=== PATIENT | female | born 1940 | race Caucasian/White ===

== ENCOUNTER → 2017-04-11 | Outpatient (CLI) | payer MEDICARE ==
--- NOTE | 2017-04-12 10:44 | ECHOF ---
Referral Reason:Aortic stenosis, Dyspnea, Edema MEASUREMENTS -------- HEIGHT: 167.6 cm WEIGHT: 86.2 kg BP: 119/60 RVIDd: 2.2 cm (< 3.3) IVSd: 1.1 cm (0.6 - 1.1) LVIDd: 4.1 cm (3.9 - 5.3) LVPWd: 1.1 cm (0.6 - 1.1) IVSs: 1.7 cm LVIDs: 2.7 cm LVPWs: 1.5 cm LA Diam: 3.9 cm (2.7 - 3.8) LAESV Index (A-L): 14.65 ml/m Ao Diam: 3.2 cm (2.0 - 3.7) AV Cusp: 1.6 cm (1.5 - 2.6) MV EXCURSION: 20.651 mm (> 18.000) MV EF SLOPE: 137 mm/s (70 - 150) EPSS: 0.2 cm MV E John: 0.75 m/s MV DecT: 211 ms MV A John: 0.94 m/s MV E/A Ratio: 0.79 AV maxP.50 mmHg AV meanP.90 mmHg FINDINGS -------- This was a technically adequate study. The left ventricular size is normal. There is borderline concentric left ventricular hypertrophy. Overall left ventricular systolic function is normal with, an EF between 55 - 60 %. The right ventricle is normal in size. Normal LA size by volume 22+/-6 ml/m2. The right atrium is normal in size. There is mild aortic valve sclerosis. There is mild aortic stenosis present. Peak/mean gradient across the Aortic Valve is 20.50mmHg / 8.90mmHg. Mild mitral annular calcification present. The tricuspid valve appears structurally normal. The pulmonic valve is normal. The aortic root size is normal. Normal inferior vena cava with normal inspiratory collapse consistent with estimated right atrial pressure of 5 mmHg. The pericardium is normal. CONCLUSIONS -------- 1. This was a technically adequate study. 2. Peak/mean gradient across the Aortic Valve is 20.50mmHg / 8.90mmHg. 3. Mild mitral annular calcification present. 4. The tricuspid valve appears structurally normal. 5. The pulmonic valve is normal. 6. The aortic root size is normal. 7. Normal inferior vena cava with normal inspiratory collapse consistent with estimated right atrial pressure of 5 mmHg. 8. The pericardium is normal. 9. The left ventricular size is normal. 10. There is borderline concentric left ventricular hypertrophy. 11. Overall left ventricular systolic function is normal with, an EF between 55 - 60 %. 12. The right ventricle is normal in size. 13. Normal LA size by volume 22+/-6 ml/m2. 14. The right atrium is normal in size. 15. There is mild aortic valve sclerosis. 16. There is mild aortic stenosis present. BEVERAGE SERVER: Mandi Pretty RDCS
== END | disposition home or self-care (01) ==
LOC: EDBD 14:53 → RADECHMAIN 14:53
PROVIDERS: ATTEND Family Medicine
DX: I35.0 Nonrheumatic aortic (valve) stenosis (principal); I05.9 Rheumatic mitral valve disease, unspecified; I35.8 Other nonrheumatic aortic valve disorders; R60.9 Edema, unspecified
CPT/HCPCS: 93306

== ENCOUNTER → 2018-07-06 | Outpatient (CLI) | payer MEDICARE ==
--- NOTE | 2018-07-06 14:09 | US ---
EXAMINATION TYPE: US kidneys/renal and bladder DATE OF EXAM: 07/06/2018 COMPARISON: None CLINICAL HISTORY: R31.2 MICROHEMATURIA. Microscopic hematuria. No pain. Hx of recent UTI EXAM MEASUREMENTS: Right Kidney: 9.8 x 4.2 x 4.0 cm Left Kidney: 9.4 x 4.3 x 4.3 cm Right Kidney: No hydronephrosis or masses seen Left Kidney: No hydronephrosis or masses seen Bladder: wnl, distended Bilateral Jets seen There is no evidence for hydronephrosis at this point in time. No nephrolithiasis is seen. No shanell s are identified. The urinary bladder is anechoic. Bilateral ureteral jets are seen. IMPRESSION: No hydronephrosis or nephrolithiasis. No sonographic sequela of medical renal disease. No focal renal masses seen.
== END | disposition home or self-care (01) ==
LOC: RADUSWWP 13:21 → EDBD 13:40
PROVIDERS: ATTEND Family Medicine
DX: R31.29 Other microscopic hematuria (principal)
CPT/HCPCS: 76770

== ENCOUNTER 2022-03-15 09:31 | Inpatient (IN) | payer MEDICARE ==
[2022-03-15 10:35] LABS: Basophils % (A) 0 %; Eosinophils # (A) 0.1 k/uL (0-0.7); Eosinophils % (A) 2 %; HCT 27.3 % (34.0-46.0); HGB 9.2 gm/dL (11.4-16.0); Hypochromasia Slight; Lymphocytes # (A) 1.7 k/uL (1.0-4.8); Lymphocytes % (A) 22 %; MCH 31.7 pg (25.0-35.0); MCHC 33.7 g/dL (31.0-37.0); MCV 94.2 fL (80.0-100.0); Mean Platelet Volume 9.7; Monocytes # (A) 0.5 k/uL (0-1.0); Monocytes % (A) 7 %; Neutrophils # (A) 4.9 k/uL (1.3-7.7); Neutrophils % (A) 66 %; Platelet Count 356 k/uL (150-450); Poikilocytosis Slight; RDW 12.7 % (11.5-15.5); WBC 7.5 k/uL (3.8-10.6)
[2022-03-15 10:46] LABS: INR 1.2 (<1.2); Partial Thromboplastin Time 38.7 sec (22.0-30.0); Prothrombin Time 12.6 sec (9.0-12.0)
[2022-03-15 10:47] LABS: Albumin 3.7 g/dL (3.5-5.0); Calcium 9.2 mg/dL (8.4-10.2); Potassium 3.4 mmol/L (3.5-5.1); Total Bilirubin 0.6 mg/dL (0.2-1.3); Total Protein 6.5 g/dL (6.3-8.2)
[2022-03-15] MEDS ORDERED: PANTOPRAZOLE 40 MG/10 ML VIAL IVP STA (12:21)
[2022-03-15] MEDS ORDERED: NALOXONE 0.4 MG/ML 1 ML VIAL IV PRN (12:24)
--- NOTE | 2022-03-15 12:24 | ED ---
General Adult HPI - General Chief complaint: GI Bleed Stated complaint: blood in stool Time Seen by Provider: 03/15/22 11:57 Source: patient, RN notes reviewed Mode of arrival: ambulatory Limitations: no limitations - History of Present Illness Initial comments: Patient is a pleasant 82-year-old female presenting to the emergency department with concern for rectal bleeding. Patient has had some mild abdominal discomfort for a few weeks. Patient has had a little bit of dark stools. Patient has had occasional blood in stools the last week, more the last day or 2. Patient has had this one or 2 times per day consistent with her normal bowel movements. No rectal pain. Patient is having some lightheadedness. Patient feels fatigued. Patient has exertional dyspnea. Patient is on Xarelto secondary to history of atrial fibrillation. No history of similar symptoms previously. - Related Data Allergies Allergy/AdvReac Type Severity Reaction Status Date / Time Sulfa (Sulfonamide Allergy Anaphylaxis Verified 03/15/22 09:57 Antibiotics) Review of Systems ROS Statement: Those systems with pertinent positive or pertinent negative responses have been documented in the HPI. ROS Other: All systems not noted in ROS Statement are negative. Constitutional: Denies: fever Eyes: Denies: eye pain ENT: Denies: ear pain Respiratory: Reports: as per HPI. Denies: cough Cardiovascular: Denies: chest pain Endocrine: Reports: fatigue Gastrointestinal: Reports: as per HPI, melena, hematochezia. Denies: vomiting Genitourinary: Denies: dysuria Musculoskeletal: Denies: back pain Skin: Denies: rash Past Medical History Past Medical History: Atrial Fibrillation, Coronary Artery Disease (CAD), Hypertension History of Any Multi-Drug Resistant Organisms: None Reported Past Surgical History: Hysterectomy, Orthopedic Surgery Past Psychological History: No Psychological Hx Reported Smoking Status: Never smoker Past Alcohol Use History: None Reported Past Drug Use History: None Reported General Exam Limitations: no limitations General appearance: alert, in no apparent distress Head exam: Present: normocephalic Eye exam: Present: normal appearance Neck exam: Present: normal inspection Respiratory exam: Present: normal lung sounds bilaterally Cardiovascular Exam: Present: regular rate, normal rhythm. Absent: irregular rhythm GI/Abdominal exam: Present: soft, normal bowel sounds. Absent: distended, tenderness, guarding, rebound, rigid, pulsatile mass Rectal exam: Present: black stool Extremities exam: Present: normal inspection Neurological exam: Present: alert Psychiatric exam: Present: normal affect, normal mood Skin exam: Present: normal color Course Vital Signs 03/15/22 09:54 Temperature 98.7 F Pulse Rate 76 Respiratory 20 Rate Blood Pressure 114/57 O2 Sat by Pulse 100 Oximetry Medical Decision Making - Medical Decision Making Patient updated on results and plan. [facility] has been paged for admission. Case discussed with practitioner Ernie, who will admit - Lab Data Result diagrams: 03/15/22 10:09 03/15/22 10:09 Lab Results 03/15/22 03/15/22 03/15/22 Range/Units 10:09 10:09 10:09 WBC 7.5 (3.8-10.6) k/uL RBC 2.90 L (3.80-5.40) m/uL Hgb 9.2 L (11.4-16.0) gm/dL Hct 27.3 L (34.0-46.0) % MCV 94.2 (80.0-100.0) fL MCH 31.7 (25.0-35.0) pg MCHC 33.7 (31.0-37.0) g/dL RDW 12.7 (11.5-15.5) % Plt Count 356 (150-450) k/uL MPV 9.7 Neutrophils % 66 % Lymphocytes % 22 % Monocytes % 7 % Eosinophils % 2 % Basophils % 0 % Neutrophils # 4.9 (1.3-7.7) k/uL Lymphocytes # 1.7 (1.0-4.8) k/uL Monocytes # 0.5 (0-1.0) k/uL Eosinophils # 0.1 (0-0.7) k/uL Basophils # 0.0 (0-0.2) k/uL Hypochromasia Slight Poikilocytosis Slight PT 12.6 H (9.0-12.0) sec INR 1.2 H (<1.2) APTT 38.7 H (22.0-30.0) sec Sodium 139 (137-145) mmol/L Potassium 3.4 L (3.5-5.1) mmol/L Chloride 103 (98-107) mmol/L Carbon Dioxide 27 (22-30) mmol/L Anion Gap 9 mmol/L BUN 23 H (7-17) mg/dL Creatinine 1.16 H (0.52-1.04) mg/dL Est GFR (CKD-EPI)AfAm 50 (>60 ml/min/1.73 sqM) Est GFR (CKD-EPI)NonAf 44 (>60 ml/min/1.73 sqM) Glucose 108 H (74-99) mg/dL Calcium 9.2 (8.4-10.2) mg/dL Total Bilirubin 0.6 (0.2-1.3) mg/dL AST 18 (14-36) U/L ALT 11 (4-34) U/L Alkaline Phosphatase 43 (38-126) U/L Troponin I (0.000-0.034) ng/mL Total Protein 6.5 (6.3-8.2) g/dL Albumin 3.7 (3.5-5.0) g/dL 03/15/22 Range/Units 10:09 WBC (3.8-10.6) k/uL RBC (3.80-5.40) m/uL Hgb (11.4-16.0) gm/dL Hct (34.0-46.0) % MCV (80.0-100.0) fL MCH (25.0-35.0) pg MCHC (31.0-37.0) g/dL RDW (11.5-15.5) % Plt Count (150-450) k/uL MPV Neutrophils % % Lymphocytes % % Monocytes % % Eosinophils % % Basophils % % Neutrophils # (1.3-7.7) k/uL Lymphocytes # (1.0-4.8) k/uL Monocytes # (0-1.0) k/uL Eosinophils # (0-0.7) k/uL Basophils # (0-0.2) k/uL Hypochromasia Poikilocytosis PT (9.0-12.0) sec INR (<1.2) APTT (22.0-30.0) sec Sodium (137-145) mmol/L Potassium (3.5-5.1) mmol/L Chloride (98-107) mmol/L Carbon Dioxide (22-30) mmol/L Anion Gap mmol/L BUN (7-17) mg/dL Creatinine (0.52-1.04) mg/dL Est GFR (CKD-EPI)AfAm (>60 ml/min/1.73 sqM) Est GFR (CKD-EPI)NonAf (>60 ml/min/1.73 sqM) Glucose (74-99) mg/dL Calcium (8.4-10.2) mg/dL Total Bilirubin (0.2-1.3) mg/dL AST (14-36) U/L ALT (4-34) U/L Alkaline Phosphatase (38-126) U/L Troponin I <0.012 (0.000-0.034) ng/mL Total Protein (6.3-8.2) g/dL Albumin (3.5-5.0) g/dL Disposition Clinical Impression: Lower GI hemorrhage Disposition: ADMITTED IP TO THIS HOSP Is patient prescribed a controlled substance at d/c from ED?: No Time of Disposition: 12:24
[2022-03-15] MEDS: SODIUM CHLORIDE 0.9% 1,000 ML IV SCH (12:46)
[2022-03-15] MEDS ORDERED: POTASSIUM CHLORIDE ER 20 MEQ TAB.ER PO STA (14:09)
--- NOTE | 2022-03-15 14:09 | P.HPIM ---
History of Present Illness H&P Date: 03/15/22 Chief Complaint: GI bleed Patient is a pleasant 82-year-old female she presents to the emergency room with chief complaint of rectal bleeding. Patient reports that her last episode of bleeding was this morning. She's been having complaints of intermittent abdominal pain along with episodes of melanotic stool since January. Patient reports that she started to notice bright red blood in her stools since last week. She's also complaining of some associated lightheadedness, fatigue as well as worsening exertional dyspnea. Patient does take xarelto due to her atrial fibrillation history. Patient denies any previous history of GI bleeds. He denies any history of peptic ulcer disease. She reports her last colonoscopy was over 10 years ago. She denies any history of EGD. Review of Systems Full complete 12 point review of system was completed and pertinent positives and negatives noted in HPI Past Medical History Past Medical History: Atrial Fibrillation, Coronary Artery Disease (CAD), Hypertension History of Any Multi-Drug Resistant Organisms: None Reported Past Surgical History: Hysterectomy, Orthopedic Surgery Past Psychological History: No Psychological Hx Reported Smoking Status: Never smoker Past Alcohol Use History: None Reported Past Drug Use History: None Reported Medications and Allergies Home Medications Medication Instructions Recorded Confirmed Type Cyanocobalamin (Vitamin B-12) 1,000 mcg PO HS 03/15/22 03/15/22 History [Vitamin B-12] Folic Acid 0.8 mg PO HS 03/15/22 03/15/22 History Lisinopril-Hctz 20-25 mg 1 tab PO BID 03/15/22 03/15/22 History [Zestoretic 20-25] Omeprazole 20 mg PO DAILY 03/15/22 03/15/22 History Pravastatin Sodium [Pravachol] 80 mg PO DAILY 03/15/22 03/15/22 History Rivaroxaban [Xarelto] 20 mg PO HS 03/15/22 03/15/22 History Allergies Allergy/AdvReac Type Severity Reaction Status Date / Time Sulfa (Sulfonamide Allergy Mouth Sores Verified 03/15/22 12:44 Antibiotics) Physical Exam Osteopathic Statement: *. No significant issues noted on an osteopathic structural exam other than those noted in the History and Physical/Consult. Vitals: Vital Signs Temp Pulse Resp BP Pulse Ox 03/15/22 12:30 97.2 F L 77 18 137/58 94 L 03/15/22 09:54 98.7 F 76 20 114/57 100 Intake and Output 03/14/22 03/15/22 03/15/22 22:59 06:59 14:59 Other: Weight 81.647 kg Derm: warm, dry Head: atraumatic, normocephalic, symmetric Eyes: EOMI, no lid lag, anicteric sclera, pupils equal round reactive to light ENT: Nose and ears atraumatic, no thrush, no pharyngeal erythema Neck: No thyromegaly, no cervical lymphadenopathy, trachea midline, supple Mouth: no lip lesion, mucus membranes moist Cardiovascular: S1S2 reg, no murmur, positive posterior tibial pulse bilateral, no edema, capillary refill less than 2 seconds Lungs: clear to ascultation bilateral, no ronchi, no rales, no wheeze, no accessory muscle use Abdominal: soft, nontender to palpation, no guarding, no appreciable organomegaly, normal bowel sounds Ext: no gross muscle atrophy, muscle strength muscle strength 5 out of 5 in all 4 extremities, no contractures Neuro: CN II-XI grossly intact, light touch intact all 4 extremities, finger to nose within normal limits, Psych: Alert, oriented, appropriate affect Results CBC & Chem 7: 03/15/22 10:09 03/15/22 10:09 Labs: Abnormal Lab Results - Last 24 Hours (Table) 03/15/22 03/15/22 03/15/22 Range/Units 10:09 10:09 10:09 RBC 2.90 L (3.80-5.40) m/uL Hgb 9.2 L (11.4-16.0) gm/dL Hct 27.3 L (34.0-46.0) % PT 12.6 H (9.0-12.0) sec INR 1.2 H (<1.2) APTT 38.7 H (22.0-30.0) sec Potassium 3.4 L (3.5-5.1) mmol/L BUN 23 H (7-17) mg/dL Creatinine 1.16 H (0.52-1.04) mg/dL Glucose 108 H (74-99) mg/dL Stool Occult Blood (Negative) 03/15/22 Range/Units 12:30 RBC (3.80-5.40) m/uL Hgb (11.4-16.0) gm/dL Hct (34.0-46.0) % PT (9.0-12.0) sec INR (<1.2) APTT (22.0-30.0) sec Potassium (3.5-5.1) mmol/L BUN (7-17) mg/dL Creatinine (0.52-1.04) mg/dL Glucose (74-99) mg/dL Stool Occult Blood Positive H (Negative) Assessment and Plan (1) Lower GI hemorrhage Current Visit: Yes Status: Acute Code(s): K92.2 - GASTROINTESTINAL HEMORRHAGE, UNSPECIFIED SNOMED Code(s): 44696325 Plan: GI bleeding Symptomatic Anemia-acute blood loss Melanotic stool -Patient reports bright red blood per rectum multiple episodes in the last week. Patient also knows have a history of reporting darker colored stools in the last month. Patient is on anticoagulation Xarelto for atrial fibrillation stroke prevention. This medication will now be placed on hold. Patient has been started on IV Protonix 40 mg IVP daily. We'll avoid any anticoagulations at this time. We'll continue to trend H&H. Patient's current hemoglobin 9.2. Patient's baseline hemoglobin unclear as there is no lab reference. -GI team has been consulted -Maintain patient nothing by mouth after midnight -Clear liquid diet -IV fluids Atrial fibrillation CAD Hypertension -Currently heart rate is controlled. Holding anticoagulation -Patient's home on blood pressure medication hydrochlorothiazide lisinopril on hold. -Continue statin therapy. Hypokalemia -Replace potassium Acute kidney injury Likely prerenal secondary to acute blood loss anemia, we'll continue with IV fluids and monitor urine output Time with Patient: Greater than 30
[2022-03-15 18:38] LABS: HCT 24.7 % (34.0-46.0); Hypochromasia Moderate; MCH 31.3 pg (25.0-35.0); MCHC 32.2 g/dL (31.0-37.0); MCV 97.2 fL (80.0-100.0); Mean Platelet Volume 10.1; Platelet Count 267 k/uL (150-450); Poikilocytosis Slight; RBC 2.54 m/uL (3.80-5.40); RDW 12.2 % (11.5-15.5); WBC 6.4 k/uL (3.8-10.6)
[2022-03-15] MEDS: PANTOPRAZOLE 40 MG/10 ML VIAL IVP SCH (21:33)
[2022-03-15] MEDS: FOLIC ACID 1 MG TAB PO SCH (21:34)
[2022-03-15] MEDS ORDERED: ACETAMINOPHEN TAB 325 MG TAB PO PRN ×2 (23:14→23:59)
[2022-03-16] MEDS: PRAVASTATIN SODIUM 80 MG TAB PO SCH (08:06)
[2022-03-16] MEDS: PANTOPRAZOLE 40 MG/10 ML VIAL IVP SCH ×2 (08:06→22:35)
[2022-03-16] MEDS: SODIUM CHLORIDE 0.9% 1,000 ML IV SCH ×2 (08:07→22:36)
[2022-03-16] MEDS ORDERED: PANTOPRAZOLE 40 MG/10 ML VIAL IVP SCH (09:00)
[2022-03-16] MEDS ORDERED: PEG 3350-NA SULF,BICARB,CL/KCL 4,000 ML BOTTLE PO ONE (12:06)
[2022-03-16 12:27] LABS: Basophils % (A) 0 %; Eosinophils # (A) 0.2 k/uL (0-0.7); Eosinophils % (A) 2 %; HCT 23.6 % (34.0-46.0); HGB 7.6 gm/dL (11.4-16.0); Hypochromasia Moderate; Lymphocytes # (A) 1.8 k/uL (1.0-4.8); Lymphocytes % (A) 25 %; MCH 31.5 pg (25.0-35.0); MCHC 32.1 g/dL (31.0-37.0); Mean Platelet Volume 9.4; Monocytes # (A) 0.9 k/uL (0-1.0); Monocytes % (A) 13 %; Neutrophils # (A) 3.9 k/uL (1.3-7.7); Neutrophils % (A) 57 %; Platelet Count 254 k/uL (150-450); Poikilocytosis Slight; RBC 2.41 m/uL (3.80-5.40); RDW 12.2 % (11.5-15.5); WBC 6.9 k/uL (3.8-10.6)
--- NOTE | 2022-03-16 13:52 | P.GSCN ---
History of Present Illness Consult date: 03/16/22 History of present illness: CHIEF COMPLAINT: GI bleed HISTORY OF PRESENT ILLNESS: This is a 82-year-old female who presented to the hospital with complaints of bright red blood per rectum. Patient reports that she has been having bleeding from her rectum for about 4 weeks. She reports over the weekend that the bleeding increased in amount. She reports that she has about 2 bowel movements a day with blood. She reports yesterday she started to feel dizzy as well. She does complain of some mild abdominal discomfort below the umbilicus. She is on Xarelto at home for her atrial fibrillation. She reports her hemoglobin at her doctor's office was 9.2 about a week ago. She does have a family history of a mom with colon cancer. Patient reports that her last colonoscopy was about 10 years ago and revealed some diverticulosis. Patient also reports having a EGD around that time as well that was normal. PAST MEDICAL HISTORY: Atrial Fibrillation, Coronary Artery Disease (CAD), Hypertension PAST SURGICAL HISTORY: Hysterectomy, Orthopedic Surgery MEDICATIONS: See list. ALLERGIES: See list. SOCIAL HISTORY: No illicit drug use. REVIEW OF SYSTEMS: CONSTITUTIONAL: Denies fever or chills. HEENT: Denies blurred vision, vision changes, or eye pain. Denies hemoptysis CARDIOVASCULAR: Denies chest pain or pressure. RESPIRATORY: No shortness of breath. GASTROINTESTINAL: See HPI for pertinent findings HEMATOLOGIC: Denies bleeding disorders. GENITOURINARY: Denies any blood in urine or increased urinary frequency. SKIN: Denies pruitis. Denies rash. PHYSICAL EXAM: VITAL SIGNS: Reviewed GENERAL: Well-developed in no acute distress. HEENT: No sclera icterus. Extraocular movements grossly intact. Moist buccal mucosa. Head is atraumatic, normocephalic. No nasal drainage. ABDOMEN: Soft. Nondistended. Tenderness to palpation below the umbilicus. NEUROLOGIC: Alert and oriented. Cranial nerves II through XII grossly intact. LABORATORY DATA: WBC is 7.5 hemoglobin 9.2 on admission trending downward to 7.6 platelets 254 INR 1.2 sodium is 139 potassium 3.4 creatinine 1.16 Stool for occult blood positive IMAGING: ASSESSMENT: 1. Acute GI bleed 2. Acute blood loss anemia secondary to GI bleed 3. Family history of her mother with colon cancer 4. History of diverticulosis 5. History of atrial fibrillation on Xarelto at home 6. Hypokalemia. Patient received supplement PLAN: -Patient scheduled for EGD and colonoscopy tomorrow 03/17/[address] adams -Start GoLYTELY prep -Okay for clear liquid diet today -Nothing by mouth after midnight -Continue to monitor hemoglobin -Continue monitor for signs and symptoms bleeding -Patient scheduled to receive a unit of blood -Continue PPI -Continue to hold Xarelto thank you for this consultation Physician Barman note has been reviewed by physician. Signing provider agrees with the documented findings, assessment, and plan of care. Past Medical History Past Medical History: Atrial Fibrillation, Coronary Artery Disease (CAD), GI Bleed, Hypertension Additional Past Medical History / Comment(s): GI bleed currently History of Any Multi-Drug Resistant Organisms: None Reported Past Surgical History: Hysterectomy, Orthopedic Surgery Past Anesthesia/Blood Transfusion Reactions: No Reported Reaction Past Psychological History: No Psychological Hx Reported Smoking Status: Never smoker Past Alcohol Use History: None Reported Past Drug Use History: None Reported - Past Family History Mother Family Medical History: Cancer Additional Family Medical History / Comment(s): colon cancer Medications and Allergies Home Medications Medication Instructions Recorded Confirmed Type Cyanocobalamin (Vitamin B-12) 1,000 mcg PO HS 03/15/22 03/15/22 History [Vitamin B-12] Folic Acid 0.8 mg PO HS 03/15/22 03/15/22 History Lisinopril-Hctz 20-25 mg 1 tab PO BID 03/15/22 03/15/22 History [Zestoretic 20-25] Omeprazole 20 mg PO DAILY 03/15/22 03/15/22 History Pravastatin Sodium [Pravachol] 80 mg PO DAILY 03/15/22 03/15/22 History Rivaroxaban [Xarelto] 20 mg PO HS 03/15/22 03/15/22 History Allergies Allergy/AdvReac Type Severity Reaction Status Date / Time Sulfa (Sulfonamide Allergy Mouth Sores Verified 03/15/22 12:44 Antibiotics) Surgical - Exam Vital Signs Temp Pulse Resp BP Pulse Ox 98.7 F 76 20 114/57 100 03/15/22 09:54 03/15/22 09:54 03/15/22 09:54 03/15/22 09:54 03/15/22 09:54 Results - Labs 03/16/22 11:53 03/15/22 10:09 Abnormal Lab Results - Last 24 Hours (Table) 03/15/22 03/15/22 Range/Units 12:30 18:08 RBC 2.54 L (3.80-5.40) m/uL Hgb 8.0 L (11.4-16.0) gm/dL Hct 24.7 L (34.0-46.0) % Stool Occult Blood Positive H (Negative)
--- NOTE | 2022-03-16 13:59 | P.PN ---
Subjective Progress Note Date: 03/16/22 Principal diagnosis: GI bleed Patient is a pleasant 82-year-old female she presents to the emergency room with chief complaint of rectal bleeding. Patient reports that her last episode of bleeding was this morning. She's been having complaints of intermittent abdominal pain along with episodes of melanotic stool since January. Patient reports that she started to notice bright red blood in her stools since last week. She's also complaining of some associated lightheadedness, fatigue as well as worsening exertional dyspnea. Patient does take xarelto due to her atrial fibrillation history. Patient denies any previous history of GI bleeds. He denies any history of peptic ulcer disease. She reports her last colonoscopy was over 10 years ago. She denies any history of EGD. 03/16/2022: Patient denies any new complaints of chest pain or pressure. Denies any new complaints of lightheaded nausea vomiting fever or chills. Patient denies any new episodes of rectal bleeding. She denies any bowel movement in the hospital. Patient's hemoglobin has now decreased to 7.6 from admission 9.2. Objective - Vital Signs Vital signs: Vital Signs Temp 98.4 F 03/16/22 13:44 Pulse 65 03/16/22 13:44 Resp 16 03/16/22 13:44 BP 141/92 03/16/22 13:44 Pulse Ox 96 03/16/22 13:44 Intake & Output 03/15/22 03/16/22 03/16/22 18:59 06:59 18:59 Weight 81.647 kg 81.647 kg Other: Voiding Method Bedside Commode - Exam Head: atraumatic, normocephalic, symmetric Eyes: EOMI, no lid lag, anicteric sclera, pupils equal round reactive to light ENT: Nose and ears atraumatic, no thrush, no pharyngeal erythema Neck: No thyromegaly, no cervical lymphadenopathy, trachea midline, supple Mouth: no lip lesion, mucus membranes moist Cardiovascular: S1S2 reg, no murmur, positive posterior tibial pulse bilateral, no edema, capillary refill less than 2 seconds Lungs: clear to ascultation bilateral, no ronchi, no rales, no wheeze, no acce ssory muscle use Abdominal: soft, nontender to palpation, no guarding, no appreciable organomegaly, normal bowel sounds Ext: no gross muscle atrophy, muscle strength muscle strength 5 out of 5 in all 4 extremities, no contractures Neuro: CN II-XI grossly intact, light touch intact all 4 extremities, finger to nose within normal limits, Psych: Alert, oriented, appropriate affect - Labs CBC & Chem 7: 03/16/22 11:53 03/15/22 10:09 Labs: Abnormal Lab Results - Last 24 Hours (Table) 03/15/22 03/16/22 Range/Units 18:08 11:53 RBC 2.54 L 2.41 L (3.80-5.40) m/uL Hgb 8.0 L 7.6 L (11.4-16.0) gm/dL Hct 24.7 L 23.6 L (34.0-46.0) % Assessment and Plan Assessment: GI bleeding Symptomatic Anemia-acute blood loss Melanotic stool -Patient reports bright red blood per rectum multiple episodes in the last week. Patient also knows have a history of reporting darker colored stools in the last month. Patient is on anticoagulation Xarelto for atrial fibrillation stroke prevention. This medication will now be placed on hold. -Protonix twice a day -Hemoglobin 9.2 on admission now down trended to 7.6 -1 unit PRBC ordered due to patient's cardiac history as well as symptomatically anemia -GI team has been consulted -Maintain patient nothing by mouth until GI eval Atrial fibrillation CAD Hypertension -Currently heart rate is controlled. Holding anticoagulation -Patient's home on blood pressure medication hydrochlorothiazide lisinopril on hold. -Continue statin therapy. Hypokalemia -Replace potassium and monitor awaiting BMP Acute kidney injury Continue with IV fluids and continue to monitor. Awaiting BMP results (1) Lower GI hemorrhage Current Visit: Yes Status: Acute Code(s): K92.2 - GASTROINTESTINAL HEMORRHAGE, UNSPECIFIED SNOMED Code(s): 04529560
[2022-03-16 15:25] LABS: African American GFR (CKD) 53.4 (60.0-200.0); Anion Gap 8.6 mmol/L (10.00-18.00); BUN/Creat Ratio 21.73 Ratio (12.00-20.00); Blood Urea Nitrogen 23.9 mg/dL (9.0-27.0); Calcium 8.7 mg/dL (8.7-10.3); Carbon Dioxide 25.4 mmol/L (20.0-27.5); Non-African American GFR(CKD) 46.1 (60.0-200.0); Potassium 3.8 mmol/L (3.5-5.5)
[2022-03-16 16:03] LABS: Basophils # (A) 0.01 X 10*3/uL (0.00-0.10); Basophils % (A) 0.2 %; Eosinophils % (A) 2.3 %; HCT 21.4 % (37.2-46.3); HGB 6.6 g/dL (12.0-15.0); Immature Grans, Automated 0.2 %; Lymphocytes # (A) 1.18 X 10*3/uL (0.90-5.00); Lymphocytes % (A) 26.9 %; MCHC 30.8 g/dL (32.0-37.0); MCV 97.3 fL (80.0-97.0); Mean Platelet Volume 12.2 fL (9.5-12.2); Monocytes # (A) 0.47 X 10*3/uL (0.20-1.00); Monocytes % (A) 10.7 %; NRBC Per 100 WBC 0 /100 WBCS (0.0-0.0); Neutrophils # (A) 2.61 X 10*3/uL (1.80-7.70); Neutrophils % (A) 59.7 %; Platelet Count 222 X 10*3/uL (140-440); RDW 12.7 % (11.5-14.5); WBC 4.38 X 10*3/uL (4.50-10.00)
[2022-03-16] MEDS: FOLIC ACID 1 MG TAB PO SCH (22:35)
[2022-03-17 08:11] LABS: African American GFR (CKD) 62 (>60 ml/min/1.73 sqM); Anion Gap 9 mmol/L; Blood Urea Nitrogen 18 mg/dL (7-17); Calcium 8.4 mg/dL (8.4-10.2); Carbon Dioxide 23 mmol/L (22-30); Chloride 110 mmol/L (98-107); Glucose 78 mg/dL (74-99); Non-African American GFR(CKD) 54 (>60 ml/min/1.73 sqM); Sodium 142 mmol/L (137-145)
[2022-03-17 08:12] LABS: Basophils % (A) 1 %; Eosinophils # (A) 0.1 k/uL (0-0.7); Eosinophils % (A) 3 %; HCT 25.9 % (34.0-46.0); HGB 8.6 gm/dL (11.4-16.0); Hypochromasia Moderate; Lymphocytes % (A) 24 %; MCH 32.3 pg (25.0-35.0); MCHC 33.2 g/dL (31.0-37.0); MCV 97.4 fL (80.0-100.0); Mean Platelet Volume 10.1; Monocytes # (A) 0.3 k/uL (0-1.0); Monocytes % (A) 8 %; Neutrophils # (A) 2.4 k/uL (1.3-7.7); Neutrophils % (A) 61 %; Platelet Count 220 k/uL (150-450); Poikilocytosis Slight; RBC 2.66 m/uL (3.80-5.40); RDW 13.5 % (11.5-15.5); WBC 3.9 k/uL (3.8-10.6)
[2022-03-17] MEDS: PANTOPRAZOLE 40 MG/10 ML VIAL IVP SCH ×2 (08:33→22:29)
[2022-03-17] MEDS: SODIUM CHLORIDE 0.9% 1,000 ML IV SCH ×3 (12:18→22:33)
[2022-03-17] MEDS ORDERED: PROPOFOL 10 MG/ML 20 ML VIAL IV ONE (12:54)
[2022-03-17] MEDS ORDERED: LIDOCAINE 2% INJ 20 MG/ML (2 ML VIAL) ONE (12:54)
[2022-03-17] MEDS ORDERED: IV FLUID CONTINUATION 1,000 ML IV ONE (13:09)
--- NOTE | 2022-03-17 13:20 | P.OP ---
Date of Procedure: 03/17/22 Preoperative Diagnosis: GI bleed Postoperative Diagnosis: Antral gastritis External hemorrhoids Poor anal sphincter tone Procedure(s) Performed: EGD Colonoscopy Anesthesia: MAC Surgeon: Curry Henley Pathology: other (antrum) Condition: stable Disposition: PACU Description of Procedure: On the endoscopy table in the lateral position. She received IV sedation. The gastro-/oropharynx passed in the esophagus and stomach. Scope was then placed through the pylorus. The first and second portion duodenum appeared normal. Scope was then brought back the antrum this was mildly inflamed. A antral biopsy performed. This performed cold forcep. Scope was retroflexed and the remainder of the stomach appeared normal. The GE junction was at 40 cm the distal esophagus appeared normal. The proximal esophagus appeared normal. Scope withdrawn for patient. Next digital rectal exam was performed. Patient a very poor anal sphincter tone. The colonoscope was then placed patient anus. 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 The patient was unable to retain air and to insufflate the colon. This was due to her poor sphincter tone. Scope was withdrawn. The sigmoid colon and rectum appeared normal. There were external hemorrhoids noted. Through the presumed patient may have bleeding from hemorrhoids.
[2022-03-17] MEDS ORDERED: LIDOCAINE 1% (10MG/ML) FOR IV START INTRADERMA PRN (13:45)
[2022-03-17] MEDS ORDERED: LACTATED RINGERS 1,000 ML IV SCH (13:45)
--- NOTE | 2022-03-17 15:39 | P.PN ---
Subjective Progress Note Date: 03/17/22 Principal diagnosis: GI bleeding Patient has not noticed any further episodes of bleeding. Currently doing well. No pain or shortness of breath. Objective - Vital Signs Vital signs: Vital Signs Temp 98.7 F 03/17/22 13:00 Pulse 78 03/17/22 13:00 Resp 21 03/17/22 13:00 BP 149/75 03/17/22 13:00 Pulse Ox 96 03/17/22 13:00 Intake & Output 03/16/22 03/17/22 03/17/22 18:59 06:59 18:59 Intake Total 2610 910 Balance 2610 910 Weight 81.647 kg Intake: Intake, IV Titration 750 600 Amount Sodium Chloride 0.9% 1, 750 600 000 ml @ 75 mls/hr IV . [id number] [facility] Rx#:[id number] Oral 1860 0 Blood Product 0 310 Rc As-1 Unit 0 310 [id number] Other: Voiding Method Bedside Commode Bedside Commode # Voids 3 2 # Bowel Movements 4 - Exam Constitutional: No acute distress, conversant, pleasant Eyes:Anicteric sclerae, moist conjunctiva, no lid-lag, PERRLA, ENMT: Oropharynx clear, no erythema, exudates Neck: Supple, FROM, no masses, or JVD, No carotid bruits, No thyromegaly Lungs: Clear to auscultation, Clear to percussion, Normal respiratory effort, no accessory muscle use Cardiovascular: Heart regular in rate and rhythm, No murmurs, gallops, or rubs, No peripheral edema Abdominal: Soft, Nontender, no guarding, rebound or rigidity, Normoactive bowel sounds, No hepatomegaly, No splenomegaly, No palpable mass Skin: Normal temperature, tone, texture, turgor, no induration, No subcutaneous nodules, No rash, lesions, No ulcers Extremities: No digital cyanosis, No clubbing, Pedal pulses intact and symmetrical, Radial pulses intact and symmetrical, No calf tenderness Psychiatric: Alert and oriented to person, place and time, appropriate affect, intact judgement Neuro: Muscles Strength 5/5 in all 4 extremities, Sensation to light touch grossly present throughout, Cranial nerves II-XII grossly intact, no focal sensory deficits - Labs CBC & Chem 7: 03/17/22 07:24 03/17/22 07:24 Labs: Abnormal Lab Results - Last 24 Hours (Table) 03/16/22 03/16/22 03/17/22 Range/Units 07:47 14:56 07:24 WBC 4.38 L (4.50-10.00) X 10*3/uL RBC 2.20 L (4.10-5.20) X 10*6/uL Hgb 6.6 L* (12.0-15.0) g/dL Hct 21.4 L (37.2-46.3) % MCV 97.3 H (80.0-97.0) fL MCHC 30.8 L (32.0-37.0) g/dL Chloride 110 H (98-107) mmol/L BUN 18 H (7-17) mg/dL Crossmatch See Detail 03/17/22 Range/Units 07:24 WBC (4.50-10.00) X 10*3/uL RBC 2.66 L (4.10-5.20) X 10*6/uL Hgb 8.6 L (12.0-15.0) g/dL Hct 25.9 L (37.2-46.3) % MCV (80.0-97.0) fL MCHC (32.0-37.0) g/dL Chloride (98-107) mmol/L BUN (7-17) mg/dL Crossmatch Assessment and Plan Plan: GI bleeding Symptomatic Anemia-acute blood loss Melanotic stool -Patient reports bright red blood per rectum multiple episodes in the last week. Patient also knows have a history of reporting darker colored stools in the last month. Patient is on anticoagulation Xarelto for atrial fibrillation stroke prevention. This medication placed on hold. -Protonix twice a day -Hemoglobin 9.2 on admission now down trended to 7.6 -1 unit PRBC given, currently stable hemoglobin. -Going for EGD and colonoscopy today Atrial fibrillation CAD Hypertension -Currently heart rate is controlled. Holding anticoagulation -Patient's home on blood pressure medication hydrochlorothiazide lisinopril on hold. -Continue statin therapy. Hypokalemia -Replaced Acute kidney injury Follow-up with IV fluids
--- NOTE | 2022-03-17 17:05 | CDI ---
Documentation Clarification Form Date: 03/17/2022 04:47:38 PM From: Laura Bauer RN, CCDS Admit Date: 03/16/2022 02:19:00 PM Patient Name: Leonor Mahoney Visit Number: [id number] Discharge Date: ATTENTION: The Clinical Documentation Specialists (CDI) and [facility] Coding Staff appreciate your assistance in clarifying documentation. Please respond to the clarification below the line at the bottom and electronically sign. The CDI & [facility] Coding staff will review the response and follow-up if needed. Please note: Queries are made part of the Legal Health Record. If you have any questions, please contact the author of this message via ITS. Dr. Brayan Ramirez Atrial Fibrillation is documented past medical history, H/P and subsequent progress notes Additional clarification regarding the type of atrial fibrillation is requested. History/Risk Factors: Atrial Fibrillation, CAD, Hypertension Clinical Indicators: 82-year-old female present to emergency department with concern for rectal bleeding, and some mild abdominal discomfort for a few weeks. She has dark stools, Patient has exertional dyspnea. Patient is on Xarelto secondary to history of atrial fibrillation 03/15 Vital signs: 114/57 76 20 98.7 03/14 EKG/telemetry: Sinus rhythm rate 68 03/15 HGB 9.2, HCT 27.3 Treatment: Xarelto ( on hold per orders) Please clarify the type of atrial fibrillation, if known: [ ] Chronic [ ] Permanent [ ] Paroxysmal [ ] Persistent [ ] Other, please specify [ ] Unable to determine (Template Last Revised: March 2021) Chronic MTDD
[2022-03-17] MEDS: PRAVASTATIN SODIUM 80 MG TAB PO SCH (17:23)
[2022-03-17] MEDS: FOLIC ACID 1 MG TAB PO SCH (22:29)
[2022-03-18] MEDS: PRAVASTATIN SODIUM 80 MG TAB PO SCH (08:11)
[2022-03-18] MEDS: PANTOPRAZOLE 40 MG/10 ML VIAL IVP SCH ×2 (08:11→20:44)
[2022-03-18 09:30] LABS: Basophils # (A) 0.02 X 10*3/uL (0.00-0.10); Basophils % (A) 0.4 %; Eosinophils # (A) 0.15 X 10*3/uL (0.04-0.35); HCT 22.5 % (37.2-46.3); Immature Grans, Automated 0.4 %; Lymphocytes # (A) 1.33 X 10*3/uL (0.90-5.00); MCH 29.9 pg (27.0-32.0); MCHC 31.1 g/dL (32.0-37.0); MCV 96.2 fL (80.0-97.0); Monocytes # (A) 0.54 X 10*3/uL (0.20-1.00); NRBC Per 100 WBC 0 /100 WBCS (0.0-0.0); Neutrophils # (A) 2.86 X 10*3/uL (1.80-7.70); Neutrophils % (A) 58.2 %; Platelet Count 172 X 10*3/uL (140-440); RBC 2.34 X 10*6/uL (4.10-5.20); RDW 13.4 % (11.5-14.5); WBC 4.92 X 10*3/uL (4.50-10.00)
--- NOTE | 2022-03-18 14:13 | P.PN ---
Subjective Progress Note Date: 03/18/22 Principal diagnosis: GI bleeding No further episodes of rectal bleeding noticed by patient. Had a small BM this am. No n/v. Objective - Vital Signs Vital signs: Vital Signs Temp 98.0 F 03/18/22 13:03 Pulse 56 L 03/18/22 13:03 Resp 18 03/18/22 13:03 BP 172/70 03/18/22 13:03 Pulse Ox 96 03/18/22 13:03 Intake & Output 03/17/22 03/18/22 03/18/22 18:59 06:59 18:59 Intake Total 1140 0 Balance 1140 0 Intake: Intake, IV Titration 600 Amount Sodium Chloride 0.9% 1, 600 000 ml @ 75 mls/hr IV . [id number] REPLACED BY [facility] Rx#:[id number] Oral 540 Blood Product 0 Rc Irr As1 Unit 0 [id number] Other: Voiding Method Bedside Commode Bedside Commode # Voids 3 1 - Exam Constitutional: No acute distress, conversant, pleasant Eyes:Anicteric sclerae, moist conjunctiva, no lid-lag, PERRLA, ENMT: Oropharynx clear, no erythema, exudates Neck: Supple, FROM, no masses, or JVD, No carotid bruits, No thyromegaly Lungs: Clear to auscultation, Clear to percussion, Normal respiratory effort, no accessory muscle use Cardiovascular: Heart regular in rate and rhythm, No murmurs, gallops, or rubs, No peripheral edema Abdominal: Soft, Nontender, no guarding, rebound or rigidity, Normoactive bowel sounds, No hepatomegaly, No splenomegaly, No palpable mass Skin: Normal temperature, tone, texture, turgor, no induration, No subcutaneous nodules, No rash, lesions, No ulcers Extremities: No digital cyanosis, No clubbing, Pedal pulses intact and symmetrical, Radial pulses intact and symmetrical, No calf tenderness Psychiatric: Alert and oriented to person, place and time, appropriate affect, intact judgement Neuro: Muscles Strength 5/5 in all 4 extremities, Sensation to light touch grossly present throughout, Cranial nerves II-XII grossly intact, no focal sensory deficits - Labs CBC & Chem 7: 03/18/22 06:10 03/17/22 07:24 Labs: Abnormal Lab Results - Last 24 Hours (Table) 03/16/22 03/18/22 Range/Units 14:56 06:10 RBC 2.34 L (4.10-5.20) X 10*6/uL Hgb 7.0 L (12.0-15.0) g/dL Hct 22.5 L (37.2-46.3) % MCHC 31.1 L (32.0-37.0) g/dL Crossmatch See Detail Assessment and Plan Plan: GI bleeding Symptomatic Anemia-acute blood loss Melanotic stool -Patient reports bright red blood per rectum multiple episodes in the last week. Patient also knows have a history of reporting darker colored stools in the last month. Patient is on anticoagulation Xarelto for atrial fibrillation stroke prevention. This medication placed on hold. -Protonix twice a day -Already given one unit of PRBC earlier, shakira give one more as hgb is now 7. -EGD showed antral gastritis and colonoscopy showed some hemorrhoids. Atrial fibrillation CAD Hypertension -Currently heart rate is controlled. Holding anticoagulation -Patient's home on blood pressure medication hydrochlorothiazide lisinopril on hold. -Continue statin therapy. Hypokalemia -Replaced Acute kidney injury Follow-up with IV fluids
--- NOTE | 2022-03-18 14:46 | P.PN ---
Subjective Progress Note Date: 03/18/22 CHIEF COMPLAINT: GI bleed HISTORY OF PRESENT ILLNESS: Patient is status post EGD and colonoscopy with res ults showing antral gastritis, external hemorrhoids and a poor anal sphincter tone. It is presumed patient may have had bleeding from the hemorrhoids. Her hemoglobin did drop further from 8.6-7.0 medicine service has ordered 1 unit of blood. Patient denies any abdominal pain. Denies any further bleeding per rectum. She did have a small bowel movement this morning. Denies any nausea or vomiting. She is tolerating a regular diet. Afebrile. WBC 4.9 HGB 7.0 platelets 172 Patient seen and examined with Dr. adams PHYSICAL EXAM: VITAL SIGNS: Reviewed. GENERAL: Well-developed in no acute distress. HEENT: No sclera icterus. Extraocular movements grossly intact. Moist buccal mucosa. Head is atraumatic, normocephalic. ABDOMEN: Soft. Nondistended. Nontender. NEUROLOGIC: Alert and oriented. Cranial nerves II through XII grossly intact. ASSESSMENT: 1. Acute GI bleed status post EGD and colonoscopy. Showing antral gastritis, external hemorrhoids and a poor anal sphincter tone. It is presumed patient may have had bleeding from the hemorrhoids 2. Acute blood loss anemia secondary to GI bleed 3. Family history of her mother with colon cancer 4. History of diverticulosis 5. History of atrial fibrillation on Xarelto at home PLAN: -If patient has any further bleeding would recommend tagged RBC scan -Patient receiving 1 unit of blood -Continue to monitor hemoglobin -Continue to monitor for any signs or symptoms of bleeding -Continue PPI Physician Meat Lugger note has been reviewed by physician. Signing provider agrees with the documented findings, assessment, and plan of care. Objective - Vital Signs Vital signs: Vital Signs Temp 98.0 F 03/18/22 13:03 Pulse 56 L 03/18/22 13:03 Resp 18 03/18/22 13:03 BP 172/70 03/18/22 13:03 Pulse Ox 96 03/18/22 13:03 Intake & Output 03/17/22 03/18/22 03/18/22 18:59 06:59 18:59 Intake Total 1140 0 Balance 1140 0 Intake: Intake, IV Titration 600 Amount Sodium Chloride 0.9% 1, 600 000 ml @ 75 mls/hr IV . [id number] [facility] Rx#:[id number] Oral 540 Blood Product 0 Rc Irr As1 Unit 0 [id number] Other: Voiding Method Bedside Commode Bedside Commode # Voids 3 1 - Labs CBC & Chem 7: 03/18/22 06:10 03/17/22 07:24 Labs: Abnormal Lab Results - Last 24 Hours (Table) 03/16/22 03/18/22 Range/Units 14:56 06:10 RBC 2.34 L (4.10-5.20) X 10*6/uL Hgb 7.0 L (12.0-15.0) g/dL Hct 22.5 L (37.2-46.3) % MCHC 31.1 L (32.0-37.0) g/dL Crossmatch See Detail
[2022-03-18] MEDS: LISINOPRIL-HCTZ 20-25 MG 1 EACH TAB PO SCH (20:44)
[2022-03-18] MEDS: FOLIC ACID 1 MG TAB PO SCH (20:44)
[2022-03-18] MEDS: SODIUM CHLORIDE 0.9% 1,000 ML IV SCH (20:44)
[2022-03-19] MEDS: PANTOPRAZOLE 40 MG/10 ML VIAL IVP SCH (09:20)
[2022-03-19] MEDS: LISINOPRIL-HCTZ 20-25 MG 1 EACH TAB PO SCH (09:20)
[2022-03-19] MEDS: PRAVASTATIN SODIUM 80 MG TAB PO SCH (09:20)
[2022-03-19] MEDS: SODIUM CHLORIDE 0.9% 1,000 ML IV SCH (11:15)
[2022-03-19 11:32] LABS: Basophils # (A) 0.02 X 10*3/uL (0.00-0.10); Basophils % (A) 0.3 %; Eosinophils # (A) 0.17 X 10*3/uL (0.04-0.35); Eosinophils % (A) 2.7 %; HCT 26.6 % (37.2-46.3); HGB 8.4 g/dL (12.0-15.0); Immature Grans, Automated 0.2 %; Lymphocytes % (A) 19.1 %; MCH 29.5 pg (27.0-32.0); MCHC 31.6 g/dL (32.0-37.0); MCV 93.3 fL (80.0-97.0); Mean Platelet Volume 12.5 fL (9.5-12.2); Monocytes # (A) 0.79 X 10*3/uL (0.20-1.00); Monocytes % (A) 12.6 %; NRBC Per 100 WBC 0.3 /100 WBCS (0.0-0.0); Neutrophils # (A) 4.08 X 10*3/uL (1.80-7.70); Neutrophils % (A) 65.1 %; Platelet Count 186 X 10*3/uL (140-440); RBC 2.85 X 10*6/uL (4.10-5.20); RDW 15.3 % (11.5-14.5); WBC 6.27 X 10*3/uL (4.50-10.00)
[2022-03-19 11:36] VITALS: BP 141/80; PULSE 72; RESP 16; TEMP 98.2
--- NOTE | 2022-03-19 13:10 | P.DS ---
Providers Date of admission: 03/16/22 14:19 Expected date of discharge: 03/19/22 Attending physician: Radha Pace DO Consults: 03/15/22 12:25 Consult Physician Urgent Consulting Provider: Curry Henley Consult Reason/Comments: gi hemorrhage Do you want consulting provider notified?: Yes Primary care physician: [facility] Course: 82-year-old female presented to the emergency room with chief complaint of rectal bleeding. She's been having complaints of intermittent abdominal pain along with episodes of melanotic stool since January. Patient reports that she started to notice bright red blood in her stools since last week. She's also complaining of some associated lightheadedness, fatigue as well as worsening exertional dyspnea. Patient does take xarelto due to her atrial fibrillation history. Patient denies any previous history of GI bleeds. He denies any history of peptic ulcer disease. She reports her last colonoscopy was over 10 years ago. She denies any history of EGD. Patient was admitted, her hemoglobin was initially at 9 when he came in but it dropped down to 6.6 a day after admission. Due to that she received her initial one unit of blood. Hemoglobin came up appropriately but again she dropped down to 7 and she received her second unit. She was seen by general surgery who ordered an EGD that showed antral gastritis, biopsies taken. She also had a colonoscopy but that was of poor quality due to inability to inflate the colon due to poor rectal tone. The test did show external hemorrhoids, a potential source of bleeding. During the hospitalization patient has not noticed any episodes of bleeding or black stools. She is currently feeling much better. She will be discharged home in a stable condition. Anticoagulation will be resumed but patient was told that if she had any other previous bleeding episodes or symptoms of shortness of breath or significant weakness to stop the blood thinner immediately and to come back to the ER. Time for discharge 36 min Plan - Discharge Summary Discharge Rx Participant: No New Discharge Prescriptions: New Pantoprazole Sodium [Protonix] 40 mg PO BID 30 Days #60 tab Continue Rivaroxaban [Xarelto] 20 mg PO HS Cyanocobalamin (Vitamin B-12) [Vitamin B-12] 1,000 mcg PO HS Pravastatin Sodium [Pravachol] 80 mg PO DAILY Lisinopril-Hctz 20-25 mg [Zestoretic 20-25] 1 tab PO BID Folic Acid 0.8 mg PO HS Discontinued Omeprazole 20 mg PO DAILY Discharge Medication List Cyanocobalamin (Vitamin B-12) [Vitamin B-12] 1,000 mcg PO HS 03/15/22 [History] Folic Acid 0.8 mg PO HS 03/15/22 [History] Lisinopril-Hctz 20-25 mg [Zestoretic 20-25] 1 tab PO BID 03/15/22 [History] Pravastatin Sodium [Pravachol] 80 mg PO DAILY 03/15/22 [History] Rivaroxaban [Xarelto] 20 mg PO HS 03/15/22 [History] Pantoprazole Sodium [Protonix] 40 mg PO BID 30 Days #60 tab 03/19/22 [Rx] Follow up Appointment(s)/Referral(s): Lion Rossi MD [Primary Care Provider] - 1-2 days
--- NOTE | 2022-03-19 14:03 | P.PN ---
Subjective Progress Note Date: 03/19/22 CHIEF COMPLAINT: Anemia HISTORY OF PRESENT ILLNESS: The patient is a 82-year-old who presented with anem ia including gastric intestinal bleeding. Upper lower endoscopy performed demonstrating gastritis. Hemoglobin yesterday improved. No gross bleeding. No hematemesis. ROS: No reports of nausea and vomiting. No fevers or chills. No new chest pain. No productive sputum PHYSICAL EXAM: VITAL SIGNS: Reviewed CONSTITUTIONAL: Well developed and in no acute distress. EYES: Conjuctivae without sclera icterus. Extraocular movements grossly intact. HEAD, EARS, NOSE, THROAT: Moist buccal mucosa. Head is atraumatic, normocephalic. Hears conversational speech. No nasal drainage. RESPIRATORY: Non-labored respirations and equal bilateral excursions. CARDIOVASCULAR: Palpable 2+ radial pulses. ABDOMEN: No peritonitis. MUSCULOSKELETAL: No gross deformity of the lower extremities noted. No cl ubbing. No cyanosis. SKIN: Good skin turgor. Well perfused. NEUROLOGIC: Cranial nerves II through XII grossly intact. No focal or lateralizing signs. PSYCH: Appropriate affect. Alert and oriented to person, place and time. CLINICAL LABS: Reviewed. Hgb increased 7.0 to 8.4 ASSESSMENT: 1. Anemia 2. Gastrointestinal bleeding PLAN: 1. Increased iron in diet discussed. 2. Diet as tolerated 3. Patient clear for discharge. Objective - Vital Signs Vital signs: Vital Signs Temp 98.2 F 03/19/22 11:35 Pulse 72 03/19/22 11:35 Resp 16 03/19/22 11:35 BP 141/80 03/19/22 11:35 Pulse Ox 95 03/19/22 11:35 Intake & Output 03/18/22 03/19/22 03/19/22 18:59 06:59 18:59 Intake Total 1100 900 Balance 1100 900 Intake: Intake, IV Titration 600 900 Amount Sodium Chloride 0.9% 1, 600 900 000 ml @ 75 mls/hr IV . [id number] [facility] Rx#:[id number] Blood Product 500 Rc Irr As1 Unit 500 [id number] Other: Voiding Method Bedside Commode Toilet # Voids 2 - Labs CBC & Chem 7: 03/19/22 06:38 03/17/22 07:24 Labs: Abnormal Lab Results - Last 24 Hours (Table) 03/16/22 03/19/22 Range/Units 14:56 06:38 RBC 2.85 L (4.10-5.20) X 10*6/uL Hgb 8.4 L (12.0-15.0) g/dL Hct 26.6 L (37.2-46.3) % MCHC 31.6 L (32.0-37.0) g/dL RDW 15.3 H (11.5-14.5) % MPV 12.5 H (9.5-12.2) fL Absolute Nucleated RBC 0.02 H (0.00-0.00) X 10*3/uL NRBC/100 WBC Diff 0.3 H (0.0-0.0) /100 WBCS Crossmatch See Detail
== END 2022-03-19 14:25 | disposition home or self-care (01) | DRG 394 ==
LOC: EC 09:31 → 6NMEDSUR 12:26 → 5NMEDONC 15:52 → OBSVTOIN 03-16 14:19 → 5NMEDONC 03-16 15:43
PROVIDERS: ADMIT Internal Medicine; ATTEND Internal Medicine
PROC: 30233N1 Transfusion of Nonautologous Red Blood Cells into Peripheral Vein, Percutaneous Approach (ICD-10-PCS; 2022-03-16)
PROC: 0DJD8ZZ Inspection of Lower Intestinal Tract, Via Natural or Artificial Opening Endoscopic (ICD-10-PCS; principal; 2022-03-17 07:30)
PROC: 0DB78ZX Excision of Stomach, Pylorus, Via Natural or Artificial Opening Endoscopic, Diagnostic (ICD-10-PCS; principal; 2022-03-17 07:30)
DX: K64.4 Residual hemorrhoidal skin tags (principal); D62 Acute posthemorrhagic anemia; N17.9 Acute kidney failure, unspecified; I48.20 Chronic atrial fibrillation, unspecified; K29.70 Gastritis, unspecified, without bleeding; E87.6 Hypokalemia; I10 Essential (primary) hypertension; I25.10 Atherosclerotic heart disease of native coronary artery without angina pectoris; Z79.01 Long term (current) use of anticoagulants; Z79.899 Other long term (current) drug therapy; Z90.710 Acquired absence of both cervix and uterus; Z87.19 Personal history of other diseases of the digestive system; Z87.39 Personal history of other diseases of the musculoskeletal system and connective tissue; Z98.890 Other specified postprocedural states; Z88.2 Allergy status to sulfonamides; K57.90 Diverticulosis of intestine, part unspecified, without perforation or abscess without bleeding; Z80.0 Family history of malignant neoplasm of digestive organs
CPT/HCPCS: 36415; 43239; 45378; 80048; 80053; 82272; 84484; 85025; 85027; 85610; 85730; 86850; 86900; 86901; 86920; 88305; 93005; 96374; 99285

== ENCOUNTER 2022-06-10 10:21 | Day surgery (SDC) | payer MEDICARE ==
[2022-06-09 12:13] VITALS: BMI 29.0
[2022-06-10 11:09] VITALS: TEMP 97.4
[2022-06-10] MEDS ORDERED: LACTATED RINGERS 1,000 ML IV ONE (11:10)
[2022-06-10] MEDS ORDERED: PROPOFOL 10 MG/ML 20 ML VIAL IV ONE (11:54)
[2022-06-10] MEDS ORDERED: LIDOCAINE 2% INJ 20 MG/ML (2 ML VIAL) ONE (11:54)
--- NOTE | 2022-06-10 12:15 | P.PCN ---
Date of Procedure: 06/10/22 Procedure(s) Performed: BRIEF HISTORY: Patient is a 82-year-old pleasant white female scheduled for an elective colonoscopy as a part of anemia and rectal bleeding. She was hospitalized and in February of this year with anemia and hemoglobin of 6.4 g/dL. She had an EGD and attempted colonoscopy by Dr. [facility] AND colonoscopy wasn't successful. She has history of A. fib and is on Xarelto which has been on hold for 2 days. She is scheduled for repeat colonoscopy today. PROCEDURE PERFORMED: Colonoscopy with snare polypectomy. PREOPERATIVE DIAGNOSIS: Recent episode of rectal bleeding and anemia. IV sedation per Anesthesia. PROCEDURE: After informed consent was obtained, the patient, was brought into the endoscopy unit. IV sedation was administered by Anesthesia under continuous monitoring. Digital rectal examination was normal. Initially the Olympus CF-160 flexible video colonoscope was then inserted in the rectum, gradually advanced into the cecum without any difficulty. Careful examination was performed as the scope was gradually being withdrawn. Ileocecal valve and the appendiceal orifice were visualized and appeared normal. Prep was excellent. Mucosa of the cecum, ascending colon, transverse colon, appeared normal. in the descending colon there was a 1 cm broad based polyp removed by snare polypectomy. Moderate left sided diverticulosis seen. Rest of the descending colon, sigmoid colon, and rectum appeared normal. Retroflexion was performed in the rectum and no lesions were seen. The patient tolerated the procedure well. IMPRESSION: 1 m descending colon polyp status post polypectomy Moderate sigmoid diverticulosis Small internal hemorrhoids RECOMMENDATIONS: Findings of this examination were discussed with the patient as well as her family. She was advised to follow with the biopsy results. Advised on a high-fiber diet and fiber supplements a regular basis. She will resume Xarelto today.
[2022-06-10 12:20] VITALS: RESP 16
[2022-06-10 12:38] VITALS: BP 142/64; PULSE 57
== END 2022-06-10 13:06 | disposition home or self-care (01) ==
LOC: ORWHC2ENDO 10:21
PROVIDERS: ATTEND Internal Medicine Gastroenterology
DX: D12.4 Benign neoplasm of descending colon (principal); K57.30 Diverticulosis of large intestine without perforation or abscess without bleeding; K64.8 Other hemorrhoids; D64.9 Anemia, unspecified; I25.10 Atherosclerotic heart disease of native coronary artery without angina pectoris; I10 Essential (primary) hypertension; I48.91 Unspecified atrial fibrillation; Z88.2 Allergy status to sulfonamides; Z79.01 Long term (current) use of anticoagulants; Z79.899 Other long term (current) drug therapy; Z80.0 Family history of malignant neoplasm of digestive organs
CPT/HCPCS: 88305; 45385; J2704; J2001